=== PATIENT | female | born 1945 | race Caucasian/White ===

== ENCOUNTER 2016-10-29 06:59 | Day surgery (SDC) | payer OTHER ==
[~2016-10-29] VITALS: Ht 162.6 cm; Wt 73.6 kg
[2016-10-29] VITALS (10 sets, daily range): BP systolic 125–138; BP diastolic 56–72; PULSE 62–68; RESP 18–23; Ht 162.6 cm; Wt 73.6 kg
[~2016-10-29 06:59] MED LIST: ASPI-676 PO; BALANCED SALT IRR SCH; CPR3OO3.5 RIGHT EYE; CYCLOPENTOLATE 1% 2 ML OPH OPER SCH; DEXT1DRO7 OP; GENTAMICIN IRR SCH; KETOROLAC OPTH RIGHT EYE; LOSA25TA5 PO; MOXIFLOXACIN 0.5% 3 ML OPH OPER SCH; PHENYLephrine 2.5% 15 ML OPH OPER SCH; SIMV20TA PO; TETRACAINE 0.5% 4 ML OPH BOTH EYES ONE; TROPICAMIDE 1% 2 ML OPH OPER SCH; VANCOMYCIN IRR SCH; [UNRECOGNIZED DRUG - OTHER] IRR SCH; [UNRECOGNIZED DRUG - OTHER] RIGHT EYE
[2016-10-29] MEDS ORDERED: TOBRAMYCIN 0.3% 3.5 GM OPH OINT ONE (07:17)
[2016-10-29] MEDS ORDERED: CARBACHOL 0.01% 1.5 ML OPH INJ ONE (07:17)
[2016-10-29] MEDS ORDERED: BUPIVACAINE 0.5% (SDV) 30 ML INJ ONE (07:17)
[2016-10-29] MEDS ORDERED: LIDOCAINE 1% (MPF) 10 ML INJ ONE ×2 (07:17→07:21)
[2016-10-29] MEDS ORDERED: LIDOCAINE 2% (SDV) 5 ML INJ ONE (07:19)
[2016-10-29 07:33] LABS: ADD SCAN DIFF NO
[2016-10-29 07:41] LABS: BASOPHILS % 0.4 % (0.0-2.0); EOSINOPHILS # 0.2 10^3/ul (0.0-0.5); EOSINOPHILS % 3.4 % (0.0-7.0); HEMATOCRIT 43.6 % (37.0-47.0); HEMOGLOBIN 14.9 g/dl (12.0-16.0); LYMPHOCYTES # 1.3 10^3/ul (0.8-2.9); LYMPHOCYTES % 28.1 % (15.0-51.0); MEAN CORPUSCULAR HEMOGLOBIN 31.5 pg (29.0-33.0); MEAN CORPUSCULAR HGB CONC 34.2 g/dl (32.0-37.0); MEAN CORPUSCULAR VOLUME 92.2 fl (82.0-101.0); MEAN PLATELET VOLUME 9.6 fl (7.4-10.4); MONOCYTE # 0.5 10^3/ul (0.3-0.9); MONOCYTES % 9.8 % (0.0-11.0); NEUTROPHIL # 2.7 10^3/ul (1.6-7.5); NEUTROPHILS % 57.9 % (39.0-77.0); PLATELET COUNT 192 10^3/UL (140-415); RED BLOOD COUNT 4.73 10^6/ul (4.20-5.40); RED CELL DISTRIBUTION WIDTH 12.5 % (11.5-14.5); WHITE BLOOD COUNT 4.7 10^3/ul (4.8-10.8)
[2016-10-29] MEDS ORDERED: SODIUM HYALURONATE 10 MG/ML SYG IO ONE (07:45)
[2016-10-29] MEDS ORDERED: LIDOCAINE 1% (MPF) 10 ML INJ INJ ONE (07:45)
[2016-10-29 07:56] LABS: INR 0.95; PARTIAL THROMBOPLASTIN TIME 29.2 Sec (25.0-35.0); PROTIME 12.7 Sec (12.2-14.2)
--- NOTE | 2016-10-29 07:58 | RADRPT ---
PROCEDURE: XR Chest 1 View. CLINICAL INDICATION: Abnormal breath sounds, preop. TECHNIQUE: AP view of the chest was obtained. COMPARISON: September 24, 2012 FINDINGS: The heart size is within normal limits. Calcified atherosclerosis is noted in the aorta. No consol idations are identified. No pneumothorax is seen. Osseous structures are intact. IMPRESSION: Calcified atherosclerosis in the aorta. Clear lungs. RPTAT: AA .Jalen Roger MD, Date Time Electronically viewed and signed by .Jalen Roger MD, MD on 10/29/2016 07:57 .P/
[2016-10-29 07:59] LABS: CALCIUM 9.6 mg/dl (8.4-10.2); CREATININE 0.68 mg/dl (0.44-1.00); POTASSIUM 4.1 mmol/L (3.5-5.1)
[2016-10-29] MEDS ORDERED: ONDANSETRON 4 MG INJ IV PRN (08:00)
[2016-10-29] MEDS ORDERED: FENTAnyl 50 MCG/ML VIAL IV PRN ×2 (08:00)
[2016-10-29] MEDS ORDERED: MIDAZOLAM 1 MG/ML 2 ML INJ IV PRN (08:00)
[2016-10-29] MEDS ORDERED: MEPERIDINE 25 MG INJ IV PRN (08:00)
[2016-10-29] MEDS ORDERED: METOCLOPRAMIDE 10 MG INJ IV PRN (08:00)
[2016-10-29] MEDS ORDERED: DIPHENHYDRAMINE 50 MG INJ IV PRN (08:00)
[2016-10-29] MEDS ORDERED: PROPOFOL 20 ML ONE (08:03)
[2016-10-29] MEDS ORDERED: hydrALAzine 20 MG INJ ONE (08:36)
--- NOTE | 2016-10-29 09:11 | PDOCDIS ---
Discharge Instructions DIAGNOSIS Discharge Diagnosis: s/p cataract removal left eye CONDITION Patient Condition: Good HOME CARE INSTRUCTIONS: Diet Instructions: Regular ACTIVITY: Activity Restrictions: No Restrictions FOLLOW UP/APPOINTMENTS Appointments call office if problems: pain, headache, nausea/vomiting or any other unusual symptoms follow up 1 day in office OTHER ORDERS: Other Orders: d/c home when stable SCHOOL/WORK RELEASE May return to School/Work on: Oct 30, 2016 SUZY IZAGUIRRE MD October 29, 2016 09:11
--- NOTE | 2016-10-29 11:45 | OPR ---
DATE OF OPERATION: 10/29/2016 PREOPERATIVE DIAGNOSIS: Cataract, left eye. POSTOPERATIVE DIAGNOSIS: Cataract, left eye. OPERATION PERFORMED: Cataract removal by phacoemulsification with implantation of posterior chamber intraocular lens, temporal approach, clear cornea. SURGEON: Kevan Henriquez MD ANESTHESIA: Topical anesthesia as well as retrobulbar anesthesia. ESTIMATED BLOOD LOSS: None. COMPLICATIONS: None. CONSENT: Prior to the procedure, a full discussion with the patient regarding alternatives, risks, benefits and possible complications of the surgery were discussed. Alternatives being no surgery wh atsoever. Risks involve loss of vision in the eye, loss of the eye, bleeding, infection, retinal de tachment, intraocular infection, vitreous loss, cystoid macular edema, displacement of the intraocul ar lens, improper intraocular lens power, ptosis, diplopia, corneal edema, irregular ocular anatomy, and all the problems associated with intraocular surgery. Also, the risks of anesthesia including brain damage, stroke, coma, and . The patient appeared to understand and decided to proceed wi th the surgery. DESCRIPTION OF PROCEDURE: The patient was brought to the operating room following dilation in the p reoperative area. The patient was given a retrobulbar block 3 mL, utilizing the disposable Goodman needle. Once good ophthalmoplegia was obtained, the patient was prepped and draped in the usual ma nner for intraocular surgery of the left eye. A lid speculum was placed in the eye and then stab incisions were made at the 12 and 6 o'clock posit ions. Intraocular preservative-free lidocaine was instilled in the anterior chamber. A 2.8 keratom e blade was used to enter the anterior chamber at the temporal limbus. This was done in a self-seal ing fashion. Then, under [place] as a viscoelastic utilizing a curved cystotome, an anterior capsulo rrhexis was performed without difficulty. The remaining capsular flap was removed with a forceps. Hydrodelineation, hydrodissection was then performed with balanced salt solution. Following , utilizing the divide and conquer method, the lens nucleus was removed in 4 quadrants. Once the 4 qu adrants were removed, the irrigation/aspiration bimanual technique was used to remove the remaining cortical material. Once this was done, the intraocular lens was placed in the cartridge and the capsular bag was inflat ed with viscoelastic. The wound was slightly enlarged so to allow easier facilitation of the lens i mplant. Then, under direct visualization, the intraocular lens was injected into the capsular bag c onfirming both the leading and the tailing haptic to be within the capsular bag as well as the optic . This was found to be the case. The lens was rotated once again to be certain it was in position, it was found to be the case. Then, utilizing the bimanual technique, the irrigation/aspiration por ts were used to remove the remaining viscoelastic from the anterior chamber of the eye as well as th e posterior to the intraocular lens. Once this was done, a single 10-0 nylon suture was placed at t he temporal limbus. All wounds were then hydro-inflated with balanced salt solution. The integrity of the wounds were found to be the case and the lens was in the proper position. The wound was jon cked for leaks, no leaks were found. The intraocular lens implanted manufactured by [employer], model [id number], 17.0 posterior chamber intraocular lens was instilled. Again, the patient tolerated the procedure well. No complications were encountered. Dictated By: KEVAN ROSA/NORMAN Conf#: [id number] DID#: [id number]
--- NOTE | 2016-10-30 17:41 | RADRPT ---
Vent Rate: 56 bpm RR Interval: 0 msec MS Interval: 170 msec QRS Duration: 138 msec QT Interval: 484 msec QTC Interval: 467 msec P-R-T [place]: 73 - 75 - 50 degrees Sinus bradycardia Left bundle branch block Abnormal ECG Electronically Signed By: Suleman Wolff [id number]
== END 2016-10-29 10:03 | disposition home or self-care (01) ==
LOC: SDS 06:59
PROVIDERS: ATTEND Ophthalmology
DX: H26.9 Unspecified cataract (principal); I25.10 Atherosclerotic heart disease of native coronary artery without angina pectoris; E78.5 Hyperlipidemia, unspecified; E66.9 Obesity, unspecified; Z68.27 Body mass index [BMI] 27.0-27.9, adult; I10 Essential (primary) hypertension; Z98.61 Coronary angioplasty status
CPT/HCPCS: 66984; 71010; 80048; 85025; 85610; 85730; 93005; J0171; J0360; J1580; J3370; V2632